=== PATIENT | male | born 2000 | race Caucasian/White ===

== ENCOUNTER 2021-08-14 14:12 | Emergency (ER) | payer OTHER ==
[2021-08-14 14:29] VITALS: BP 104/71; PULSE 72; TEMP 98.1; BMI 23.3
[2021-08-14] MEDS ORDERED: BACITRACIN 15 GM TUBE TOPICAL OINTMENT ONE (15:33)
[2021-08-14] MEDS ORDERED: BACITRACIN 15 GM TUBE TOPICAL OINTMENT TP ONE (15:37)
== END 2021-08-14 17:06 | disposition home or self-care (01) ==
LOC: JERFT 14:12
DX: T23.001A Burn of unspecified degree of right hand, unspecified site, initial encounter (principal); T23.002A Burn of unspecified degree of left hand, unspecified site, initial encounter; X19.XXXA Contact with other heat and hot substances, initial encounter
CPT/HCPCS: 99282-25

== ENCOUNTER 2022-11-22 22:31 | Emergency (ER) | payer OTHER ==
[2022-11-22 22:36] VITALS: BP 107/71; PULSE 68; RESP 16; TEMP 98.1; BMI 23.0
[2022-11-22] MEDS ORDERED: CLINDAMYCIN HCL 300 MG CAPSULE PO ONE (23:56)
[2022-11-23] MEDS ORDERED: CLINDAMYCIN HCL 150 MG CAPSULE (FP) ONE (00:02)
[2022-11-23] MEDS ORDERED: BACITRACIN 0.9 GM PACKET TP ONE (00:21)
== END 2022-11-23 00:40 | disposition home or self-care (01) ==
LOC: JER 22:31
DX: L03.031 Cellulitis of right toe (principal)
CPT/HCPCS: 99283-25